=== PATIENT | female | born 1950 | race Caucasian/White ===

== ENCOUNTER 2018-09-29 09:49 | Emergency (ER) | payer MEDICARE, OTHER, SELFPAY ==
[2018-09-29 09:50] VITALS: BP 124/71; PULSE 50; RESP 16; TEMP 36.2; O2SAT 98; BMI 23.0
--- NOTE | 2018-09-29 10:17 | ED.VIS.GEN ---
History of Present Illness Chief Complaint: Dizziness Informant: Patient Onset: Yesterday Context: Sudden Onset Timing: Waxes and wanes Quality: spinning Location: head Current Severity: Moderate Maximum Severity: Moderate Worsened by: tilting head up and down Relieved by: remaining still Associated Symptoms: global mild headache that started a little after the dizziness. Narrative: Patient having dizziness it feels like spinning, the more she spends more nauseated she feels. It is not severe. It started with some type of position change but she does not know exactly what she was doing at the time, it was after she took a 5 Hour walk which she does daily. Also off-balance a little while walking. She has had no viral infections in the last several weeks. She has had no head injury. No recent medication changes or additions. Denies any history of stroke. Chronic tinnitus, no different. No ear pain or discharge. She has a history of migraines, states this headache is different, no thunderclap, not severe, she took a migraine pill and it did not help much. She states she has had these symptoms in the past, but she went to urgent care today and they were not sure what to do so sent her to the emergency department. - Past Medical History (1) Hyperlipidemia Status: Chronic Past Medical History - Allergies and Home Meds Allergies/Adverse Reactions: Allergies No Known Allergies Allergy (Verified 09/29/18 09:49) Primary Care Physician: Alfred Napoles MD [Primary Care Provider] - Lives: Spouse/ Significant Other Smoking Status: Former smoker Alcohol: Rare - Not an alcoholic Drugs: None Review of Systems General: Denies: Chills, Fever, Sweats Eyes: Denies: Visual changes - bilaterally, Diplopia ENT: Reports: - - Tinnitus, chronic, unchanged. Denies: Bilateral ear pain, Rhinorrhea, Sore throat Cardiovascular: Denies: Chest pain, Palpitations Respiratory: Denies: Dyspnea, Cough, Dyspnea on exertion Gastrointestinal: Reports: Nausea. Denies: Abdominal pain, Vomiting, Diarrhea, Melena, Hematochezia Genitourinary: Denies: Dysuria, Hematuria, Frequency Musculoskeletal: Denies: Back pain, Extremity Pain Skin: Denies: Rash, Wounds Neurological: Reports: Headache, - - Dizziness. See HPI.. Denies: Weakness, Numbness Physical Exam Vital Signs/Narrative: Vital Signs Temp Pulse Resp BP Pulse Ox 09/29/18 09:50 97.1 F L 50 L 16 124/71 H 98 Inital Vital Signs reviewed: Yes General: Well nourished, Well developed, No Acute Distress Head: Normocephalic, Atraumatic Eyes: Perrl, EOMI ENT: Moist mucous membranes, No rhinorrhea, TM's clear. Negative for: Nasal congestion, Sinus tenderness Neck: Supple, Nontender, - - No carotid bruits Cardiovascular: Regular rate, Regular rhythm, No murmurs Respiratory: No distress, CTA bilaterally, Chest nontender Abdomen: Soft, Nontender, Nondistended, Normal bowel sounds Back: Nontender, Normal Inspection Extremities: Nontender, No edema Skin: Normal color, No rash Neurological: Alert, Oriented x3, Cranial nerves II-XII grossly intact, Normal Strength, Normal Sensation, Normal DTR, Normal Gait, - - Normal [id number] and [id number] bilaterally. Positive Lawtey-Hallpike with horizontal nystagmus to the left only. While sitting she has horizontal nystagmus to the left, with no vertical or rotatory nystagmus. Psychological: Normal affect, Normal Mood Diagnostic/Tx/Re-eval - Medical Decision Making Performed Dorina maneuver starting to the left. Patient had tried to do it at home but was doing it incorrectly and started to the right. It was ineffective at home. She is now asymptomatic. She is reassured this is very likely peripheral vertigo and even more likely to be benign paroxysmal positional vertigo. No CT or further testing is indicated since she has had no recent illnesses. I gave her some ibuprofen for her headache here as well as a prescription for meclizine, she is comfortable with not taking it now and will follow up with ENT if symptoms are persistent. ED Disposition - Plan for ED Patient: Disposition: Home or Assisted Living Diagnosis: Benign paroxysmal positional vertigo of left ear Instructions: ED BPV Vertigo Prescriptions: Meclizine HCl 25 mg PO TID PRN #16 tablet PRN Reason: Vertigo Referrals: Mario Bernal MD [STAFF PHYSICIAN] - 1 Week if not improving
[2018-09-29] MEDS: Ibuprofen 600 MG Tablet PO (10:34)
[2018-09-29 10:39] VITALS: BP 127/76; PULSE 54; RESP 15
== END 2018-09-29 10:39 | disposition home or self-care (01) ==
PROVIDERS: Emergency Provider Emergency Medicine; Family Provider Internal Medicine; PCP Internal Medicine
DX: H81.12 Benign paroxysmal vertigo, left ear (principal); H93.19 Tinnitus, unspecified ear; G43.909 Migraine, unspecified, not intractable, without status migrainosus; E78.5 Hyperlipidemia, unspecified; Z79.899 Other long term (current) drug therapy; Z87.891 Personal history of nicotine dependence
CPT/HCPCS: 99283